=== PATIENT | female | born 1965 | race Two or more races ===

== ENCOUNTER → 2024-08-23 | Outpatient (CLI) | payer MEDICAID, SELFPAY ==
--- NOTE | 2024-08-23 10:42 | XR_ITS ---
Examination: Knee, left , 3 views Technique: Knee AP, lateral, oblique 3 views Date and time of exam: August 23, 2024 1056 hours INDICATIONS: Knee pain post knee arthroplasty 7 months ago. FINDINGS: Moderate osteopenia Total left knee arthroplasty. Satisfactory alignment No fracture. No loosening of the prosthetic components IMPRESSION: Total left knee arthroplasty with satisfactory alignment
--- NOTE | 2024-08-23 10:47 | XR_ITS ---
Examination: Knee, right , 3 views Technique: Knee AP, lateral, oblique 3 views Date and time of exam: August 23, 2024 and 56 hours INDICATIONS: Right knee pain post arthroplasty one year ago. FINDINGS: Moderate osteopenia. Total right knee arthroplasty. Satisfactory alignment. No loosening of the prosthetic components. No fracture IMPRESSION: Total right knee arthroplasty with satisfactory alignment
== END | disposition home or self-care (01) ==
PROVIDERS: PCP Physician Assistant; Referring Provider Orthopaedic Surgery; Visit Provider Orthopaedic Surgery
DX: M25.562 Pain in left knee (principal); M25.561 Pain in right knee; Z96.653 Presence of artificial knee joint, bilateral
CPT/HCPCS: 73562

== ENCOUNTER 2024-09-09 23:40 | Emergency (ER) | payer MEDICAID, SELFPAY ==
[2024-09-10 00:31] VITALS: BP 139/64; PULSE 78; RESP 18; TEMP 36.7; O2SAT 94
--- NOTE | 2024-09-10 00:38 | XR_ITS ---
Examination: Tibia-Fibula, left , 2 views Technique: Tibia-fibula AP lateral 2 views Date and time of exam: 2024 101 hrs. Indications: Patient fell yesterday with injury to lower leg, lower leg pain. Findings: Total left knee arthroplasty with satisfactory alignment No fracture No dislocation Impression: No acute fracture
--- NOTE | 2024-09-10 00:39 | PD.EDFALL ---
ED Fall Injury RME/HPI General Chief Complaint: Fall Stated Complaint: FELL YESTERDAY, LEFT CALF PAIN Time Seen by Provider: 09/09/24 23:50 Arrival date/time: 09/09/24 23:40 58-year-old female reports with complaints of left tib-fib pain. Patient states woke up stepping out of her car yesterday she felt a cramping pain in the leg she reports not taking any pain medicine the pain is continued. She denies numbness tingling decreased range of motion or weakness of the limb Related Data Home Medications ?Medication ?Instructions ?Recorded ?Confirmed atorvastatin 20 mg tablet 20 mg PO QDAY 09/29/22 05/02/24 lisinopril 20 mg tablet 20 mg PO QDAY 09/29/22 05/02/24 semaglutide 7 mg tablet (Rybelsus) 7 mg PO QDAY 01/26/23 05/02/24 albuterol sulfate 90 mcg/actuation 1 puff inhalation QID PRN 12/28/23 05/02/24 aerosol inhaler Bronchospasm montelukast 10 mg tablet 10 mg PO QDAY 12/28/23 05/02/24 levothyroxine 50 mcg tablet 50 mcg PO QDAY 05/02/24 05/02/24 Allergies Allergy/AdvReac Type Severity Reaction Status Date / Time No Known Allergies Allergy Verified 05/02/24 12:33 Review of Systems Constitutional Constitutional: Denies chills and Denies fever(s) Musculoskeletal Musculoskeletal: Denies deformity, Denies joint swelling, Denies numbness and Denies tingling Integumentary/Breasts Skin/Breast: Denies erythema and Denies rash Neurologic Neurologic: Denies numbness and Denies tingling Past Medical History Past Medical History NEUROLOGIC: Negative Neurological Disorders or Seizures CARDIAC: Positive Cardiac Disorders, Hypercholesterolemia and Hypertension; Negative Congestive Heart Failure RESPIRATORY: Positive Asthma; Negative Chronic Obstructive Pulmonary Disease (COPD) GASTROINTESTINAL: Positive Gastrointestinal Disorders and Obesity; Negative Hepatitis GENITOURINARY: Negative Genitourinary Disorders or Renal Disease REPRODUCTIVE: Positive Previous Pregnancies MUSCULOSKELETAL: Positive Musculoskeletal Disorders and Arthritis ENDOCRINE: Positive Endocrine Disorders, Diabetes Mellitus Type 2 and Hypothyroidism; Negative Diabetes Mellitus Type 1 HEMATOLOGIC: Negative Blood Disorders or Sickle Cell Disease OTHER HISTORY: Positive Hospitalization (surgery) and Falls; Negative Autoimmune Disease, Down Syndrome, Developmental Delay, Shingles, Blood Transfusions, Blood Transfusion Reaction, Anesthesia Reactions, MRSA, Chicken Pox, Measles, Mumps or Cancer Family History FAMILY HISTORY: Positive Family Surgery; Negative Family Psychiatric Problems, Family Respiratory Disorders, Family Cardiac Disorders, Family Gastrointestinal Problems, Family Cancer or Family Anesthesia Reaction Surgical History SURGICAL: Positive Arthroscopy (right knee) and Section (x3) Social History SMOKING STATUS: Never smoker SECOND HAND EXPOSURE: No ED Exam Expanded Lower Extremity Exam Knee exam: Present normal inspection and full ROM Lower leg exam: Present normal inspection and full ROM; Absent tenderness, swelling, ecchymosis, deformity, erythema or palpable cord Ankle exam: Present normal inspection and full ROM Foot/toe exam: Present normal inspection and full ROM Neurovascular/Tendon exam: Present normal capillary refill; Absent pulse deficit or motor deficit Gait: antalgic Course Course Course Narrative: X-ray is negative for fractures or dislocations Quality Measures none Orders Category Date Time Status XR tibia fibula LT 2V Stat Exams 09/10/24 00:38 Taken Vital Signs Vital signs: Vital Signs Temperature 98.0 F 09/10/24 00:31 Pulse Rate 78 09/10/24 00:31 Respiratory Rate 18 09/10/24 00:31 Blood Pressure 139/64 H 09/10/24 00:31 Pulse Oximetry (%) 94 L 09/10/24 00:31 Oxygen Delivery Method Room Air 09/10/24 00:31 Fall Patient data External records reviewed:: None Clinical information provided by:: patient Social determinants that could affect healthcare access:: none Patient has the following chronic illnesses:: none How is presenting disease/condition affected by chronic disease/condition?: no chronic disease Evaluation data The following diagnostics were reviewed and interpreted by me:: radiology exam(s) Lab and/or radiology exams considered but not ordered:: none Interpretation Summary: X-rays negative for fractures or dislocations Medications / Prescriptions Medications or Prescriptions considered but not ordered:: None Medication administrations:: Toradol Consultations Consultation(s) initiated? (list below): No Diagnosis Fall Differential Diagnosis: other (Lower leg sprain versus lower leg fracture versus lower leg contusion) Most likely diagnosis given after review of the tests above:: Lower leg pain Admission Indicated Admission indicated?: not indicated Admission Request Was there a request for admission?: No Disposition Plan Disposition Plan: Discharge Discharge Attestation Discharge Attestation: The patient and all family members were given an opportunity to ask questions and understood the discharge instructions. Discharge instructions specifically effects, indications for sooner follow up or return to the emergency department, and the expected course of current diagnosis. Patient condition: Stable Discharge Plan Plan Patient Disposition: HOME (Self Care) Prescriptions/Referrals Prescriptions/Med Rec: No Action Rybelsus 7 mg Tablet 7 mg PO QDAY montelukast 10 mg Tablet 10 mg PO QDAY albuterol sulfate 90 mcg/actuation Hfa Aerosol Inhaler 1 puff INHALATION QID PRN (Reason: Bronchospasm) atorvastatin 20 mg Tablet 20 mg PO QDAY lisinopril 20 mg Tablet 20 mg PO QDAY levothyroxine 50 mcg tablet 50 mcg PO QDAY Patient Comments: take 1 tablet by mouth once daily Referrals: Tea Cat PA-C [Primary Care Provider] - In 1 week Problem List Clinical Impression: Acute pain of left lower extremity Patient/Caregiver Discharge Instructions Discharge Activity: activity as tolerated Education Materials: ED Myalgias Additional Instructions: Take qzrq-gqr-mceynoa medication such as ibuprofen or Tylenol for pain and follow-up with your primary care provider or orthopedist as needed Print Language: Bruneian Stand Alone Forms: [facility] Award Info., Patient Portal Info Letter
[2024-09-10] MEDS: KETOROLAC INJ 60 MG/2 ML VIAL 30 MG IM (02:25)
[2024-09-10 02:29] VITALS: RESP 18
== END 2024-09-10 02:29 | disposition home or self-care (01) ==
PROVIDERS: Emergency Provider Emergency Medicine; PCP Physician Assistant
DX: M79.605 Pain in left leg (principal); I10 Essential (primary) hypertension; E78.00 Pure hypercholesterolemia, unspecified; J45.909 Unspecified asthma, uncomplicated; W17.89XA Other fall from one level to another, initial encounter; Y93.89 Activity, other specified
CPT/HCPCS: 73590; 96372; 99283; J1885

== ENCOUNTER → 2024-09-30 | Outpatient (CLI) | payer MEDICAID, SELFPAY ==
--- NOTE | 2024-09-30 11:00 | XR_ITS ---
Examination: Arterial duplex lower extremity unilateral left Date and time of exam: September 30, 2024 1131 hours INDICATIONS: Left calf pain several months left knee replacement 8 months ago Findings: Duplex sonographic imaging of the lower extremity arteries using B-mode/Aguilar scale imaging and Doppler spectral analysis and color flow. Ankle brachial indices have been recorded. Left common femoral artery demonstrates triphasic flow. Left superficial femoral artery demonstrates triphasic flow. Left popliteal artery demonstrates triphasic flow. Left posterior tibial artery demonstrated triphasic flow. Left ankle/brachial index is 1.0. Impression: Negative examination
== END | disposition home or self-care (01) ==
LOC: CDIM 11:07
PROVIDERS: PCP Nurse Practitioner Primary Care; Referring Provider Nurse Practitioner Primary Care; Visit Provider Nurse Practitioner Primary Care
DX: M79.662 Pain in left lower leg (principal); Z96.652 Presence of left artificial knee joint
CPT/HCPCS: 93926

== ENCOUNTER → 2024-10-18 | Outpatient (CLI) | payer MEDICAID, SELFPAY ==
--- NOTE | 2024-10-18 15:49 | XR_ITS ---
Examination: Knee, right , 3 views Technique: Knee AP, lateral, oblique 3 views Date and time of exam: October 18, 2024 1545 hrs. Indications: Post total knee replacement Findings: Total left knee arthroplasty. Satisfactory alignment. No loosening of the prosthetic components No fracture Impression: Total left knee arthroplasty with satisfactory alignment
--- NOTE | 2024-10-18 15:49 | XR_ITS ---
Examination: Lumbar spine, 5 views Technique: Lumbar spine AP, lateral, coned lateral lower lumbar spine, bilateral obliques 5 views Exam date and time: October 18, 2024 1545 hrs. Indications: Low back pain years. Findings: Grade 1 anterolisthesis L4 on L5 Mild to moderate diffuse lumbar disc narrowing Mild lumbar spondylosis Moderate facet arthropathy No lumbar fracture Impression: Mild to moderate diffuse lumbar disc narrowing
== END | disposition home or self-care (01) ==
PROVIDERS: PCP Physician Assistant; Referring Provider Orthopaedic Surgery; Visit Provider Orthopaedic Surgery
DX: M25.562 Pain in left knee (principal); Z96.652 Presence of left artificial knee joint; M48.061 Spinal stenosis, lumbar region without neurogenic claudication
CPT/HCPCS: 72110; 73562

== ENCOUNTER 2024-10-28 16:00 | Outpatient (RCR) | payer MEDICAID, SELFPAY ==
--- NOTE | 2024-10-08 10:41 | PTNOTE_ITS ---
PT OP Initial Eval Patient Information Visit Reasons: Right knee joint replacement Medical Diagnosis: Z96.651 Treatment Dx #1: R knee pain Treatment Dx #2: Dec R knee ROM Start of Care: 10/08/24 Date of Onset: R TKA 12/2022, L TKA 12/2023 Smoking Status Smoking Status: Never smoker Initial Assessment Subjective: Pt is 58 yr old japanese speaking female s/p B TKA, L being the most recent last December. Pt c/o pain and difficulty bending the knees L>R. This is the first time she has been sent to physical therapy for the knees. Pt reports difficulty with ambulating and the L knee doesn't support her well and feels weak. She is using a cane now and wasn't prior to the TKA's. PMH: R TKA 12/2022, L TKA 12/2023, DM, hypothyroidism Pt goal: to bend the L knee and walk with greater strength Objective: R knee ArOM: Extension: full Flexion: 100 deg SLR: 75 deg Strength: Quads: 4-/5 HS: 4/5 Gait: antalgic with SPC and decreased WB on L LE Assessment: Pt presentation consistent with post op B TKA with decreased ROM, strength ? and WB tolerance. Pt lacks knee flexion ROM that is limited by ? myofascial limitations and pain.? Pt requires skilled therapy to improve ROM ? and strength and has fair rehab potential potentially limited by length of time since sx. Pt would benefit from ROM device such as a Dynasplint to improve knee flexion ROM and an updated order and authorization that includes the L knee. Short Term and Retirement Goals 1. Ind with HEP 2. Improved R knee flexion ROM to at least 110 deg 3. Improved quad strength to 4/5 Treatment Plan 1. Manual therapy ? 2. Therex ? 3. Modalities as indicated, moist heat, ice, estim Frequency and Duration: 2x a week for 12 Rx sessions plus evaluation Certification Dates: 10/08/24 to 01/06/25 Procedure Charges OP PT Eval Mod Complex 30 minutes: Yes
--- NOTE | 2024-10-15 17:42 | PT.ODAYNRPT ---
PT Outpatient Daily Note OP Daily Note Outpatient Physical Therapy Treatment Date: 10/15/24 Visit Reasons: Right knee joint replacement Subjective: Pt points to the lateral patella border as site of pain Objective: See F/S for therex MT: STM lateral patella border with [place] x5' Assessment: Pt able to lunge and do partial body weight squats with low to moderate pain Plan: Continue per POC Length of Time (minutes) of Treatment: 30 Minutes Procedure Charges Therapeutic Exercise 30 minutes: Yes
--- NOTE | 2024-10-17 16:37 | PT.ODAYNRPT ---
PT Outpatient Daily Note OP Daily Note Outpatient Physical Therapy Treatment Date: 10/17/24 Visit Reasons: Right knee joint replacement Subjective: Pt reports B knee pain, as of right now feels L knee is worse. Pt c/o L knee swelling. Objective: Please see flow sheet for ther ex list. Assessment: Pt motivated to perform interventions assigned with minimal pain. L knee edema present. Plan: Continue with poC. Length of Time (minutes) of Treatment: 30 Minutes Procedure Charges Therapeutic Exercise 30 minutes: Yes
--- NOTE | 2024-10-28 17:29 | PT.ODAYNRPT ---
PT Outpatient Daily Note OP Daily Note Outpatient Physical Therapy Treatment Date: 10/28/24 Visit Reasons: Right knee joint replacement Subjective: Low pain level of R knee today Objective: See F/S for therex MT: PROM into flexion x7' R knee Assessment: PROM R knee 100 deg Plan: Continue per POC Length of Time (minutes) of Treatment: 30 Minutes Procedure Charges Therapeutic Exercise 30 minutes: Yes
== END 2024-10-30 23:59 | disposition home or self-care (01) ==
LOC: CPTX 16:00
PROVIDERS: PCP Physician Assistant; Referring Provider Physician Assistant; Visit Provider Physician Assistant
DX: M25.561 Pain in right knee (principal); M25.562 Pain in left knee; R53.1 Weakness; Z96.653 Presence of artificial knee joint, bilateral
CPT/HCPCS: 97110; 97162

== ENCOUNTER → 2024-11-06 | Outpatient (CLI) | payer MEDICAID, SELFPAY ==
--- NOTE | 2024-11-06 11:15 | XR_ITS ---
Examination: Screening digital mammography, bilateral Computer aided detection 3-D breast Tomosynthesis, bilateral Date and time of exam: November 06, 2024 1103 hours Compared to mammograms dating to October 24, 2014 Indication: Screening Technique: Nonmagnified MLO, CC views of the breasts to been obtained, reconstructed from 3-D Tomosynthesis images. R2 computer aided detection program utilized for evaluation of suspicious masses and/or abnormal calcifications. 3-D Tomosynthesis images obtained. Findings: Scattered areas of fibroglandular density Benign calcifications No interval suspicious masses Impression: BI-RADS category II: Benign Findings. Recommend 1 year follow-up mammogram.
== END | disposition home or self-care (01) ==
LOC: CDIM 10:56
PROVIDERS: Referring Provider Physician Assistant; Visit Provider Physician Assistant
DX: Z12.31 Encounter for screening mammogram for malignant neoplasm of breast (principal); R92.323 Mammographic fibroglandular density, bilateral breasts
CPT/HCPCS: 77063; 77067

== ENCOUNTER 2024-11-27 15:00 | Outpatient (RCR) | payer MEDICAID, SELFPAY ==
--- NOTE | 2024-11-04 15:49 | PT.ODAYNRPT ---
PT Outpatient Daily Note OP Daily Note Outpatient Physical Therapy Treatment Date: 11/04/24 Visit Reasons: Right knee joint replacement Subjective: Pt c/o knee stiffness and pain on the back of the knee. Objective: Please see flow sheet for ther ex list. Assessment: Performed STM to posterior knee, pt tolerated with minimal pain. Plan: Continue with POC. Length of Time (minutes) of Treatment: 30 Minutes Procedure Charges Therapeutic Exercise 30 minutes: Yes
--- NOTE | 2024-11-11 16:35 | PT.ODAYNRPT ---
PT Outpatient Daily Note OP Daily Note Outpatient Physical Therapy Treatment Date: 11/11/24 Visit Reasons: Right knee joint replacement Subjective: Low pain level of R knee today Objective: See F/S for therex MT: PROM into flexion x7' Assessment: Some lateral sway with gait Plan: Continue per POC Length of Time (minutes) of Treatment: 30 Minutes Procedure Charges Therapeutic Exercise 30 minutes: Yes
--- NOTE | 2024-11-18 17:51 | PT.ODAYNRPT ---
PT Outpatient Daily Note OP Daily Note Outpatient Physical Therapy Treatment Date: 11/18/24 Visit Reasons: Right knee joint replacement Subjective: Low pain level of R knee today Objective: See F/S for therex MT: PROM into flexion x7' Assessment: Some lateral sway with gait and pain at end-range knee flexion Plan: Continue per POC Length of Time (minutes) of Treatment: 30 Minutes Procedure Charges Therapeutic Exercise 30 minutes: Yes
--- NOTE | 2024-11-27 15:37 | PT.ODAYNRPT ---
PT Outpatient Daily Note OP Daily Note Outpatient Physical Therapy Treatment Date: 11/27/24 Visit Reasons: Right knee joint replacement Subjective: Pt reports R knee is moving a little better since starting PT. Objective: Please see flow sheet for ther ex list. Assessment: Focus on restoring ROM of R knee pt performed static and dynamic stretches. Plan: Continue with poC. Length of Time (minutes) of Treatment: 30 Minutes Procedure Charges Therapeutic Exercise 30 minutes: Yes
== END 2024-11-30 23:59 | disposition home or self-care (01) ==
LOC: CPTX 15:00
PROVIDERS: PCP Physician Assistant; Referring Provider Physician Assistant; Visit Provider Physician Assistant
DX: M25.561 Pain in right knee (principal); E11.9 Type 2 diabetes mellitus without complications; Z96.653 Presence of artificial knee joint, bilateral
CPT/HCPCS: 97110

== ENCOUNTER 2024-12-24 14:30 | Outpatient (RCR) | payer MEDICAID, SELFPAY ==
--- NOTE | 2024-12-04 16:42 | PT.ODAYNRPT ---
PT Outpatient Daily Note OP Daily Note Outpatient Physical Therapy Treatment Date: 12/04/24 Visit Reasons: Right knee joint replacement Subjective: Low pain level of R knee today Objective: See F/S for therex Assessment: Some lateral sway with gait and pain at end-range knee flexion. Plan: Continue per POC Length of Time (minutes) of Treatment: 30 Minutes Procedure Charges Therapeutic Exercise 30 minutes: Yes
--- NOTE | 2024-12-11 15:13 | PT.ODAYNRPT ---
PT Outpatient Daily Note OP Daily Note Outpatient Physical Therapy Treatment Date: 12/11/24 Visit Reasons: Right knee joint replacement Subjective: Pt reports R knee is doing better, notices the flexibility has improved. Pt shared that she is most limited when doging Objective: Please see flow sheet for ther ex list. Assessment: Pt AROM in R knee continues to improve. Plan: Continue with POC. Length of Time (minutes) of Treatment: 30 Minutes Procedure Charges Therapeutic Exercise 30 minutes: Yes
--- NOTE | 2024-12-24 18:27 | PT.ODAYNRPT ---
PT Outpatient Daily Note OP Daily Note Outpatient Physical Therapy Treatment Date: 12/24/24 Visit Reasons: Right knee joint replacement Subjective: Low pain level of R knee today Objective: See F/S for therex Assessment: Some lateral sway with gait and pain at end-range knee flexion. Plan: Continue per POC Length of Time (minutes) of Treatment: 30 Minutes Procedure Charges Therapeutic Exercise 30 minutes: Yes
== END 2024-12-30 23:59 | disposition home or self-care (01) ==
LOC: CPTX 14:30
PROVIDERS: PCP Physician Assistant; Referring Provider Physician Assistant; Visit Provider Physician Assistant
DX: M25.561 Pain in right knee (principal); R53.1 Weakness; Z96.651 Presence of right artificial knee joint
CPT/HCPCS: 97110

== ENCOUNTER 2025-01-15 14:30 | Outpatient (RCR) | payer MEDICAID, SELFPAY ==
--- NOTE | 2025-01-01 15:55 | PT.ODAYNRPT ---
PT Outpatient Daily Note OP Daily Note Outpatient Physical Therapy Treatment Date: 01/01/25 Visit Reasons: RT knee joint replacement Subjective: Low pain level of R knee today Objective: See F/S for therex Assessment: Some lateral sway with gait and pain at end-range knee flexion. Plan: Reassess Length of Time (minutes) of Treatment: 30 Minutes Procedure Charges Therapeutic Exercise 30 minutes: Yes
--- NOTE | 2025-01-15 15:01 | PT.ODS1RPT ---
PT OP Progress/Discharge Note Date of Service: 01/15/25 Progress Note/DC Note Progress Note/Discharge Note: DC Note Patient Information Visit Reasons: RT knee joint replacement Service Continue Service or Discharge: Discharge Discharge Date: 01/15/25 Status Subjective: A little more strength of R knee since starting therapy Objective: R knee AROM: Flexion: 100 deg Extension: full Strength: Quads: 4+/5 HS: 4/5 Gait: lateral sway Assessment: Pt has attended 12/12 visits with good progress to meet strength goals. Pt has improved quad strength to meet goal of 4/5. Flexion ROM hasn't met the goal of 110 deg and progres with that goal has plateaued. Pt is independent with HEP to meet that goal. Plan: D/C with HEP Procedure Charges Therapeutic Exercise 30 minutes: Yes
== END 2025-01-30 23:59 | disposition home or self-care (01) ==
LOC: CPTX 14:30
PROVIDERS: PCP Physician Assistant; Referring Provider Physician Assistant; Visit Provider Physician Assistant
DX: M25.561 Pain in right knee (principal); M25.562 Pain in left knee; Z96.653 Presence of artificial knee joint, bilateral
CPT/HCPCS: 97110